=== PATIENT | male | born 1950 | race Caucasian/White ===

== ENCOUNTER 2016-03-27 14:18 | Inpatient (IN) | payer OTHER ==
[~2016-03-27] VITALS: Ht 177.8 cm; Wt 68.0 kg
[~2016-03-27 14:18] MED LIST: AMANTADINE100 M1 PO; AMPYRA10 MG PO; AZITHROMYCIN500 M1 PO; BACLOFEN10 MG PO; BENICAR HCT 201 EACH PO; CLONAZEPAM1 MG PO; COPAXONE40 MG/1 ML IJ; COPAXONE40 MG/1 ML SC; CYCLOSPORINE100 M2 PO; ERGOCALCIF50000 UNIT PO; FAMOTIDINE20 MG PO; FUROSEMIDE20 MG PO; GABAPENTIN300 MG PO; KLONOPIN1 MG PO; LIORESAL10 MG PO; LISINOPRIL10 MG PO; MAGNESIUM250 MG PO; METHOCARBAMOL500 MG PO; PRAVASTATIN SOD40 MG PO; PREDNISONE10 MG PO; TYLENOL EXTRA500 MG PO; TYLENOL REGULA325 MG PO; TYLENOL325 M1 PO; VITAMIN D35000 UNIT PO; ZANAFLEX2 M1 PO; ZANAFLEX4 M1 PO
[2016-03-27 16:09] LABS: CHLORIDE 99 mEq/L (99-109); POTASSIUM 5.3 mEq/L (3.7-5.4); SODIUM 141 mEq/L (136-147)
[2016-03-27 16:11] LABS: GLUCOSE 108 mg/dL (70-99)
[2016-03-27 16:12] LABS: ANION GAP 13 MEQ/L (2-14)
[2016-03-27 16:15] LABS: GFR ESTIMATE (CALCULATED) 14 mL/min/
[2016-03-27 16:16] LABS: UREA NITROGEN (BUN) 62 mg/dL (9-23)
[2016-03-27 16:33] LABS: MCH 30.9 PG (29.0-34.0); MCHC 33.2 G/DL (30.0-36.0); RBC DIS.WIDTH-CV 14.6 % (11.8-14.6); RBC DIS.WIDTH-SD 47.2 % (39-53); RED BLOOD COUNT 4.73 M/uL (4.00-5.50); WHITE BLOOD COUNT 13.6 K/uL (4.1-10.2)
[2016-03-27 16:56] LABS: EOSINOPHIL (%) 0.4 % (0-5); EOSINOPHIL COUNT 0.1 K/uL (0-0.3); IMMATURE GRANULOCYTE (%) 0.4 % (0.0-0.7); IMMATURE GRANULOCYTE COUNT 0.1 K/uL; LYMPHOCYTE COUNT 2.3 K/uL (1.0-2.8); MONOCYTE (%) 6.3 % (3-12); MONOCYTE COUNT 0.8 K/uL (0-0.8); NEUTROPHIL (%) 75.9 % (45-76); NEUTROPHIL COUNT 10.1 K/uL (1.8-6.4)
[2016-03-27 17:03] LABS: TOTAL BILIRUBIN 0.8 mg/dL (0.0-1.0)
[2016-03-27 17:04] LABS: ALKALINE PHOSPHATASE 171 IU/L (3-129)
[2016-03-27 17:07] LABS: DIRECT BILIRUBIN 0.4 mg/dL (0.0-0.3)
[2016-03-27 17:08] LABS: LIPASE 29 U/L (1.0-51.0)
[2016-03-27 17:14] LABS: TROP-I INTERPRETATION NEGATIVE; TROPONIN-I 0.01 ng/mL (0.0-0.30)
[2016-03-27 17:28] LABS: ABS NEUTROPHIL COUNT 10.46; ANISOCYTOSIS 1+; MEAN PLAT.VOLUME 13.2 uM^3 (9.0-12.4); PLAT.SUFFICIENCY ADEQUATE; PLATELET COUNT 241 K/uL (156-360); USER ID NPD
[2016-03-27] MEDS ORDERED: INDERAL20 MG PO (18:08)
[2016-03-27] MEDS ORDERED: OCEAN NASAL 0.645 ML BOTH NARES (18:11)
[2016-03-27] MEDS ORDERED: NEURONTIN100 MG PO ×2 (18:12)
[2016-03-27] MEDS ORDERED: ZOFRAN8 MG PO (18:13)
[2016-03-27 22:00] VITALS: BP 210/100
[2016-03-28 04:08] VITALS: BP 162/68
[2016-03-28 06:24] LABS: METH RESISTANT S AUREUS PCR NEGATIVE (NEGATIVE)
[2016-03-28 06:26] LABS: PROBE CHECK PASS; SPECIMEN PROCESSING CONTROL PASS
[2016-03-28 06:40] LABS: ANION GAP 6 MEQ/L (2-14); CHLORIDE 103 MEQ/L (99-109); GFR ESTIMATE (CALCULATED) 17 mL/min/; GLUCOSE 104 mg/dL (70-99); POTASSIUM 4.7 MEQ/L (3.7-5.4); SAMPLE HEMOLYSIS CHECK 0; SAMPLE ICTERIC CHECK 0; SAMPLE LIPEMIA CHECK 0; SODIUM 140 MEQ/L (136-147); UREA NITROGEN (BUN) 55 mg/dL (9-23)
[2016-03-28 08:22] VITALS: BP 155/78
[2016-03-28 09:40] VITALS: BP 162/76
[2016-03-28 11:14] LABS: HEMATOCRIT 37.1 % (38.0-50.0); MCH 31.7 PG (29.0-34.0); MCHC 33.2 G/DL (30.0-36.0); MCV 95.6 FL (86-99); MEAN PLAT.VOLUME 13.5 uM^3 (9.0-12.4); PLATELET COUNT 225 K/uL (156-360); RBC DIS.WIDTH-CV 14.8 % (11.8-14.6); RED BLOOD COUNT 3.88 M/uL (4.00-5.50); WHITE BLOOD COUNT 7.2 K/uL (4.1-10.2)
[2016-03-28 12:26] VITALS: BP 135/68
[2016-03-28 14:04] LABS: ADD MIUA? NO; BILIRUBIN NEGATIVE; BLOOD NEGATIVE; COLOR YELLOW ((YELLOW)); GLUCOSE (STRIP) NEGATIVE; KETONES NEGATIVE; LEUKOCYTES NEGATIVE; NITRITE NEGATIVE; PROTEIN (STRIP) NEGATIVE; SPECIFIC GRAVITY 1.012 (1.000-1.030); UROBILINOGEN 0.2 MG/DL (0.2-1.0)
[2016-03-28 14:06] LABS: UCUL ADDED? NO
[2016-03-28 16:00] VITALS: BP 203/94
[2016-03-28 21:00] VITALS: BP 152/84
[2016-03-29] VITALS (8 sets, daily range): BP systolic 120–192; BP diastolic 62–92
[2016-03-29 07:11] LABS: ANION GAP 9 MEQ/L (2-14); CHLORIDE 108 MEQ/L (99-109); GFR ESTIMATE (CALCULATED) 29 mL/min/; GLUCOSE 81 mg/dL (70-99); POTASSIUM 5.1 MEQ/L (3.7-5.4); SAMPLE HEMOLYSIS CHECK 0; SAMPLE ICTERIC CHECK 0; SAMPLE LIPEMIA CHECK 0; SODIUM 145 MEQ/L (136-147); UREA NITROGEN (BUN) 48 mg/dL (9-23)
[2016-03-29 07:23] LABS: EOSINOPHIL (%) 6.5 % (0-5); EOSINOPHIL COUNT 0.6 K/uL (0-0.3); HEMATOCRIT 35.7 % (38.0-50.0); IMMATURE GRANULOCYTE (%) 0.5 % (0.0-0.7); IMMATURE GRANULOCYTE COUNT 0.1 K/uL; LYMPHOCYTE COUNT 4.5 K/uL (1.0-2.8); MCHC 32.5 G/DL (30.0-36.0); MCV 95.5 FL (86-99); MONOCYTE (%) 13.4 % (3-12); MONOCYTE COUNT 1.3 K/uL (0-0.8); NEUTROPHIL (%) 31.1 % (45-76); NEUTROPHIL COUNT 2.9 K/uL (1.8-6.4); RBC DIS.WIDTH-CV 14.9 % (11.8-14.6); RBC DIS.WIDTH-SD 51.8 % (39-53); RED BLOOD COUNT 3.74 M/uL (4.00-5.50)
[2016-03-29 07:27] LABS: WHITE BLOOD COUNT 9.4 K/uL (4.1-10.2)
[2016-03-29 07:31] LABS: MEAN PLAT.VOLUME 13.7 uM^3 (9.0-12.4); PLAT.SUFFICIENCY ADEQUATE; PLATELET COUNT 217 K/uL (156-360); USER ID SDF
[2016-03-29 20:02] LABS: UR CREATININE CONCENTRATION 51.9 MG/DL
[2016-03-30] VITALS (8 sets, daily range): BP systolic 101–182; BP diastolic 54–90
[2016-03-30 07:01] LABS: ALKALINE PHOSPHATASE 133 IU/L (3-129); ANION GAP 10 MEQ/L (2-14); CHLORIDE 107 MEQ/L (99-109); GFR ESTIMATE (CALCULATED) 43 mL/min/; GLUCOSE 83 mg/dL (70-99); POTASSIUM 4.9 MEQ/L (3.7-5.4); SAMPLE HEMOLYSIS CHECK 0; SAMPLE ICTERIC CHECK 0; SAMPLE LIPEMIA CHECK 0; SODIUM 144 MEQ/L (136-147); TOTAL BILIRUBIN 0.4 MG/DL (0.0-1.0); UREA NITROGEN (BUN) 36 mg/dL (9-23); URIC ACID 9.4 mg/dL (3.1-9.2)
[2016-03-30 07:31] LABS: EOSINOPHIL (%) 0.6 % (0-5); EOSINOPHIL COUNT 0.1 K/uL (0-0.3); HEMATOCRIT 37.2 % (38.0-50.0); IMMATURE GRANULOCYTE (%) 0.5 % (0.0-0.7); IMMATURE GRANULOCYTE COUNT 0.1 K/uL; LYMPHOCYTE COUNT 2.5 K/uL (1.0-2.8); MCH 31.9 PG (29.0-34.0); MCHC 33.1 G/DL (30.0-36.0); MCV 96.6 FL (86-99); MONOCYTE (%) 10.3 % (3-12); MONOCYTE COUNT 1.1 K/uL (0-0.8); NEUTROPHIL (%) 64.1 % (45-76); NEUTROPHIL COUNT 6.5 K/uL (1.8-6.4); RBC DIS.WIDTH-CV 15.4 % (11.8-14.6); RBC DIS.WIDTH-SD 51.7 % (39-53); RED BLOOD COUNT 3.85 M/uL (4.00-5.50); WHITE BLOOD COUNT 10.2 K/uL (4.1-10.2)
[2016-03-30 07:32] LABS: HEMATOLOGY COMMENT 1 COLD AGGLUTININS
[2016-03-30 08:17] LABS: MEAN PLAT.VOLUME 13.8 uM^3 (9.0-12.4); PLATELET COUNT 210 K/uL (156-360)
[2016-03-31 07:00] VITALS: BP 156/70
[2016-03-31 07:21] LABS: ANION GAP 7 MEQ/L (2-14); CHLORIDE 105 MEQ/L (99-109); GFR ESTIMATE (CALCULATED) 46 mL/min/; GLUCOSE 90 mg/dL (70-99); POTASSIUM 4.5 MEQ/L (3.7-5.4); SAMPLE HEMOLYSIS CHECK 0; SAMPLE ICTERIC CHECK 0; SAMPLE LIPEMIA CHECK 0; SODIUM 140 MEQ/L (136-147); UREA NITROGEN (BUN) 36 mg/dL (9-23)
[2016-03-31 15:26] VITALS: BP 154/68
[2016-04-01] VITALS: BP 154/72
[2016-04-01 06:51] LABS: ANION GAP 6 MEQ/L (2-14); CHLORIDE 104 MEQ/L (99-109); GFR ESTIMATE (CALCULATED) 38 mL/min/; GLUCOSE 82 mg/dL (70-99); POTASSIUM 4.6 MEQ/L (3.7-5.4); SAMPLE HEMOLYSIS CHECK 0; SAMPLE ICTERIC CHECK 0; SAMPLE LIPEMIA CHECK 0; SODIUM 137 MEQ/L (136-147); UREA NITROGEN (BUN) 39 mg/dL (9-23)
[2016-04-01 07:53] LABS: EOSINOPHIL (%) 6.9 % (0-5); EOSINOPHIL COUNT 0.6 K/uL (0-0.3); HEMATOCRIT 31.7 % (38.0-50.0); IMMATURE GRANULOCYTE (%) 0.7 % (0.0-0.7); IMMATURE GRANULOCYTE COUNT 0.1 K/uL; LYMPHOCYTE COUNT 3.7 K/uL (1.0-2.8); MCHC 32.8 G/DL (30.0-36.0); MCV 94.3 FL (86-99); MONOCYTE (%) 14.3 % (3-12); MONOCYTE COUNT 1.3 K/uL (0-0.8); NEUTROPHIL (%) 37.5 % (45-76); NEUTROPHIL COUNT 3.4 K/uL (1.8-6.4); NRBC (%) 0.4 /100 WBC (0-0); RBC DIS.WIDTH-CV 15.5 % (11.8-14.6); RBC DIS.WIDTH-SD 51.2 % (39-53); RED BLOOD COUNT 3.36 M/uL (4.00-5.50); WHITE BLOOD COUNT 9.2 K/uL (4.1-10.2)
[2016-04-01 08:13] VITALS: BP 133/66
[2016-04-01 08:18] LABS: USER ID CL
[2016-04-01 08:19] LABS: MEAN PLAT.VOLUME 13.8 uM^3 (9.0-12.4); PLATELET COUNT 164 K/uL (156-360)
[2016-04-01 15:26] VITALS: BP 109/54
[2016-04-01 19:48] VITALS: BP 126/61
[2016-04-01 23:44] VITALS: BP 139/65
[2016-04-02 06:28] LABS: ANION GAP 6 MEQ/L (2-14); CHLORIDE 107 MEQ/L (99-109); GFR ESTIMATE (CALCULATED) 41 mL/min/; GLUCOSE 86 mg/dL (70-99); POTASSIUM 4.6 MEQ/L (3.7-5.4); SAMPLE HEMOLYSIS CHECK 0; SAMPLE ICTERIC CHECK 0; SAMPLE LIPEMIA CHECK 0; SODIUM 140 MEQ/L (136-147); UREA NITROGEN (BUN) 38 mg/dL (9-23)
[2016-04-02 07:43] VITALS: BP 151/70
[2016-04-02 08:04] LABS: HEMATOLOGY COMMENT 1 COLD AGGLUTININS
[2016-04-02 08:05] LABS: EOSINOPHIL (%) 9.4 % (0-5); EOSINOPHIL COUNT 0.8 K/uL (0-0.3); HEMATOCRIT 31.8 % (38.0-50.0); IMMATURE GRANULOCYTE (%) 0.4 % (0.0-0.7); LYMPHOCYTE COUNT 3.8 K/uL (1.0-2.8); MCH 31.3 PG (29.0-34.0); MCHC 33.3 G/DL (30.0-36.0); MCV 93.8 FL (86-99); MONOCYTE (%) 14.4 % (3-12); MONOCYTE COUNT 1.2 K/uL (0-0.8); NEUTROPHIL (%) 30.6 % (45-76); NEUTROPHIL COUNT 2.6 K/uL (1.8-6.4); NRBC (%) 0.7 /100 WBC (0-0); RBC DIS.WIDTH-CV 16.2 % (11.8-14.6); RBC DIS.WIDTH-SD 51.4 % (39-53); RED BLOOD COUNT 3.39 M/uL (4.00-5.50); WHITE BLOOD COUNT 8.6 K/uL (4.1-10.2)
[2016-04-02 08:26] LABS: MEAN PLAT.VOLUME 13.4 uM^3 (9.0-12.4); PLAT.SUFFICIENCY ADEQUATE; PLATELET COUNT 163 K/uL (156-360)
[2016-04-02] MEDS ORDERED: CLONIDINE HCL0.1 MG PO (08:44)
== END 2016-04-02 11:45 | disposition home health service (06) | DRG 682 ==
LOC: EME 14:18 → EDOF 20:07 → 5WEST 20:07 → EDOF 20:07 → 5WEST 21:27 → 2EAST 03-28 12:10 → 5WEST 03-28 12:10 → 2EAST 03-29 00:48
PROVIDERS: Hospitalist; Internal Medicine; Internal Medicine Gastroenterology; Internal Medicine Nephrology; Physician Assistant
DX: N17.9 Acute kidney failure, unspecified (principal); M31.1 Thrombotic microangiopathy; R11.2 Nausea with vomiting, unspecified; E86.0 Dehydration; K22.70 Barrett's esophagus without dysplasia; K44.9 Diaphragmatic hernia without obstruction or gangrene; K25.9 Gastric ulcer, unspecified as acute or chronic, without hemorrhage or perforation; D59.1 Other autoimmune hemolytic anemias; G35 Multiple sclerosis; I12.9 Hypertensive chronic kidney disease with stage 1 through stage 4 chronic kidney disease, or unspecified chronic kidney disease; N18.3 Chronic kidney disease, stage 3 (moderate); K57.30 Diverticulosis of large intestine without perforation or abscess without bleeding; K59.09 Other constipation; R29.6 Repeated falls; Z86.73 Personal history of transient ischemic attack (TIA), and cerebral infarction without residual deficits; R44.1 Visual hallucinations; R44.0 Auditory hallucinations; Z87.891 Personal history of nicotine dependence
CPT/HCPCS: 70450; 71020; 74176; 76770; 80048; 80053; 80069; 80076; 80158 90; 81003; 82570; 83690; 83935; 84100; 84300; 84484; 84550; 85007; 85025; 85027; 85060; 87641; 88305; 88342 TC; 93005; 97530 GO; 99281; 99284; B4087; C9113; G0378; G9033; J0360; J2765; J7030; J7502; J7515

== ENCOUNTER 2016-11-19 10:15 | Emergency (ER) | payer OTHER ==
[~2016-11-19] VITALS: Ht 175.3 cm; Wt 68.1 kg
[~2016-11-19 10:15] MED LIST changes: +CLONIDINE HCL0.1 MG PO; +INDERAL20 MG PO; +NEURONTIN100 MG PO; +OCEAN NASAL 0.645 ML BOTH NARES; +ZOFRAN8 MG PO
[2016-11-19 11:26] LABS: NRBC (%) 0.3 /100 WBC (0-0)
[2016-11-19 11:36] LABS: CHLORIDE 102 mEq/L (99-109); POTASSIUM 5.4 mEq/L (3.7-5.4); SODIUM 138 mEq/L (136-147)
[2016-11-19 11:39] LABS: GLUCOSE 100 mg/dL (70-99)
[2016-11-19 11:40] LABS: ANION GAP 16 MEQ/L (2-14); TOTAL BILIRUBIN 0.5 mg/dL (0.0-1.0)
[2016-11-19 11:41] LABS: SERUM ETHYL ALCOHOL < 10 mg/dL
[2016-11-19 11:42] LABS: GFR ESTIMATE (CALCULATED) 25 mL/min/
[2016-11-19 11:43] LABS: ALKALINE PHOSPHATASE 168 IU/L (3-129)
[2016-11-19 11:44] LABS: DIRECT BILIRUBIN 0.3 mg/dL (0.0-0.3); UREA NITROGEN (BUN) 74 mg/dL (9-23)
[2016-11-19 11:46] LABS: SALICYLATE < 5.0 MG/DL (15-30)
[2016-11-19 11:47] LABS: LIPASE 51 U/L (1.0-51.0)
[2016-11-19 12:02] LABS: PROTHROMBIN TIME 11.1 SEC (10.2-12.9)
[2016-11-19 12:04] LABS: PTT 37.5 SEC (25-37)
[2016-11-19 12:16] LABS: HEMATOCRIT 36.6 % (38.0-50.0); MCH 31.2 PG (29.0-34.0); MCHC 32.5 G/DL (30.0-36.0); MCV 95.8 FL (86-99); RBC DIS.WIDTH-CV 15.6 % (11.8-14.6); RBC DIS.WIDTH-SD 54.2 % (39-53); WHITE BLOOD COUNT 9.3 K/uL (4.1-10.2)
[2016-11-19 12:19] LABS: MEAN PLAT.VOLUME 13.1 uM^3 (9.0-12.4); PLATELET COUNT 170 K/uL (156-360); RED BLOOD COUNT 1.84 M/uL (4.00-5.50)
[2016-11-19 12:20] LABS: TROP-I INTERPRETATION NEGATIVE; TROPONIN-I 0.04 ng/mL (0.0-0.30)
[2016-11-19 12:22] LABS: PLATELET CLUMPS PRESENT - PLATELET COUNT APPEARS ADQ.
[2016-11-19 13:04] LABS: BILIRUBIN NEGATIVE; BLOOD NEGATIVE; COLOR YELLOW ((YELLOW)); GLUCOSE (STRIP) NEGATIVE; KETONES NEGATIVE; LEUKOCYTES NEGATIVE; NITRITE NEGATIVE; PROTEIN (STRIP) NEGATIVE; SPECIFIC GRAVITY 1.011 (1.000-1.030); UROBILINOGEN 0.2 MG/DL (0.2-1.0)
[2016-11-19 13:06] LABS: ADD MIUA? NO; UCUL ADDED? NO
[2016-11-19 16:14] VITALS: BP 170/90
== END 2016-11-19 16:15 | disposition home or self-care (01) ==
LOC: EME 10:15
PROVIDERS: Emergency Medicine
DX: G35 Multiple sclerosis (principal); R29.6 Repeated falls; R11.10 Vomiting, unspecified; I10 Essential (primary) hypertension; R56.9 Unspecified convulsions; Z86.73 Personal history of transient ischemic attack (TIA), and cerebral infarction without residual deficits; Z87.891 Personal history of nicotine dependence
CPT/HCPCS: 70450; 71020; 80048; 80076; 81003; 83605; 83690; 83880; 84484; 85027; 85610; 85730; 93005; 99281; 99284; G0480

== ENCOUNTER 2017-02-04 11:30 | Inpatient (IN) | payer OTHER ==
[~2017-02-04] VITALS: Ht 177.8 cm; Wt 67.9 kg
[2017-02-04 12:26] LABS: NRBC (%) 0.6 /100 WBC (0-0)
[2017-02-04 12:27] LABS: CHLORIDE 108 mEq/L (99-109); POTASSIUM 5.9 mEq/L (3.7-5.4); SODIUM 140 mEq/L (136-147)
[2017-02-04 12:28] LABS: EOSINOPHIL (%) 5.3 % (0-5); EOSINOPHIL COUNT 0.5 K/uL (0-0.3); IMMATURE GRANULOCYTE (%) 0.4 % (0.0-0.7); INSTRUMENT ABS NEUTROPHIL CT 5.8 K/uL; LYMPHOCYTE COUNT 1.7 K/uL (1.0-2.8); MONOCYTE (%) 6.3 % (3-12); MONOCYTE COUNT 0.5 K/uL (0-0.8); NEUTROPHIL (%) 67.6 % (45-76); NEUTROPHIL COUNT 5.8 K/uL (1.8-6.4)
[2017-02-04 12:30] LABS: GLUCOSE 177 mg/dL (70-99)
[2017-02-04 12:31] LABS: ANION GAP 11 MEQ/L (2-14)
[2017-02-04 12:32] LABS: TOTAL BILIRUBIN 0.4 mg/dL (0.0-1.0)
[2017-02-04 12:33] LABS: ALKALINE PHOSPHATASE 161 IU/L (3-129); GFR ESTIMATE (CALCULATED) 25 mL/min/
[2017-02-04 12:34] LABS: UREA NITROGEN (BUN) 69 mg/dL (9-23)
[2017-02-04] MEDS ORDERED: FLOMAX0.4 MG PO (12:40)
[2017-02-04 13:04] LABS: HEMATOCRIT 35.4 % (38.0-50.0); MCH 31.7 PG (29.0-34.0); MCHC 32.8 G/DL (30.0-36.0); MCV 96.7 FL (86-99); MEAN PLAT.VOLUME 13.3 uM^3 (9.0-12.4); PLATELET COUNT 95 K/uL (156-360); RBC DIS.WIDTH-CV 18.3 % (11.8-14.6); RBC DIS.WIDTH-SD 53.8 % (39-53); RED BLOOD COUNT 2.31 M/uL (4.00-5.50); WHITE BLOOD COUNT 8.6 K/uL (4.1-10.2)
[2017-02-04 13:29] LABS: ADD MIUA? YES; BILIRUBIN NEGATIVE; BLOOD MODERATE; COLOR YELLOW ((YELLOW)); GLUCOSE (STRIP) 50; KETONES NEGATIVE; LEUKOCYTES NEGATIVE; NITRITE NEGATIVE; PROTEIN (STRIP) 100; SPECIFIC GRAVITY 1.012 (1.000-1.030); UROBILINOGEN 0.2 MG/DL (0.2-1.0)
[2017-02-04 13:36] LABS: BACTERIA RARE /HPF; EPITHELIAL CELLS NONE SEEN /HPF; MUCUS TRACE /LPF; RED BLOOD CELLS 15-20 /HPF (0-5); UCUL ADDED? NO; WHITE BLOOD CELLS 0-5 /HPF (0-5)
[2017-02-04 14:36] LABS: EOSINOPHIL COUNT 0.4 K/uL (0-0.3); IMMATURE GRANULOCYTE (%) 0.4 % (0.0-0.7); INSTRUMENT ABS NEUTROPHIL CT 5.6 K/uL; LYMPHOCYTE COUNT 1.9 K/uL (1.0-2.8); MCH 33.2 PG (29.0-34.0); MCHC 33.6 G/DL (30.0-36.0); MCV 98.8 FL (86-99); MONOCYTE COUNT 0.5 K/uL (0-0.8); NEUTROPHIL COUNT 5.6 K/uL (1.8-6.4); NRBC (%) 0.7 /100 WBC (0-0); RBC DIS.WIDTH-CV 14.8 % (11.8-14.6); RBC DIS.WIDTH-SD 51.7 % (39-53); WHITE BLOOD COUNT 8.4 K/uL (4.1-10.2)
[2017-02-04 14:41] LABS: PLATELET COUNT 140 K/uL (156-360); RED BLOOD COUNT 3.34 M/uL (4.00-5.50)
[2017-02-04 14:44] LABS: TOTAL BILIRUBIN 0.4 mg/dL (0.0-1.0)
[2017-02-04 14:45] LABS: ALKALINE PHOSPHATASE 145 IU/L (3-129)
[2017-02-04 14:48] LABS: DIRECT BILIRUBIN 0.2 mg/dL (0.0-0.3)
[2017-02-04 14:52] LABS: TROP-I INTERPRETATION NEGATIVE; TROPONIN-I 0.01 ng/mL (0.0-0.30)
[2017-02-04 15:34] LABS: LACTATE DEHYDROGENASE 172 IU/L (20-246)
[2017-02-04 20:33] LABS: TROP-I INTERPRETATION NEGATIVE; TROPONIN-I 0.02 ng/mL (0.0-0.30)
[2017-02-04 20:45] VITALS: BP 129/67
[2017-02-04 20:50] VITALS: BP 129/67
[2017-02-04 21:30] VITALS: BP 128/62
[2017-02-04 22:00] VITALS: BP 136/67
[2017-02-04 22:10] LABS: METH RESISTANT S AUREUS PCR NEGATIVE (NEGATIVE)
[2017-02-04 22:11] LABS: PROBE CHECK PASS; SPECIMEN PROCESSING CONTROL PASS
[2017-02-04 23:00] VITALS: BP 141/68
[2017-02-05] VITALS (7 sets, daily range): BP systolic 0–186; BP diastolic 0–97
[2017-02-05 05:45] LABS: ANION GAP 6 MEQ/L (2-14); CHLORIDE 110 MEQ/L (99-109); GFR ESTIMATE (CALCULATED) 25 mL/min/; POTASSIUM 5.6 MEQ/L (3.7-5.4); SAMPLE HEMOLYSIS CHECK 0; SAMPLE ICTERIC CHECK 0; SAMPLE LIPEMIA CHECK 0; SODIUM 142 MEQ/L (136-147); UREA NITROGEN (BUN) 68 mg/dL (9-23)
[2017-02-05 05:46] LABS: GLUCOSE 98 mg/dL (70-99)
[2017-02-05 06:00] LABS: HEMATOCRIT 32.7 % (38.0-50.0); MCH 31.6 PG (29.0-34.0); MCHC 32.4 G/DL (30.0-36.0); MCV 97.6 FL (86-99); NRBC (%) 1.6 /100 WBC (0-0); PLATELET COUNT 118 K/uL (156-360); RBC DIS.WIDTH-SD 52.7 % (39-53); RED BLOOD COUNT 3.35 M/uL (4.00-5.50); WHITE BLOOD COUNT 9.8 K/uL (4.1-10.2)
[2017-02-05 22:11] LABS: DIRECT BILIRUBIN 0.1 mg/dL (0.0-0.3); TOTAL BILIRUBIN 0.3 MG/DL (0.0-1.0)
[2017-02-05 22:16] LABS: ALKALINE PHOSPHATASE 138 IU/L (3-129); LIPASE 46 U/L (1.0-51.0)
[2017-02-06] VITALS (7 sets, daily range): BP systolic 140–182; BP diastolic 68–88
[2017-02-06 07:22] LABS: ANION GAP 8 MEQ/L (2-14); CHLORIDE 113 MEQ/L (99-109); GFR ESTIMATE (CALCULATED) 36 mL/min/; GLUCOSE 89 mg/dL (70-99); POTASSIUM 5.4 MEQ/L (3.7-5.4); SAMPLE HEMOLYSIS CHECK 0; SAMPLE ICTERIC CHECK 0; SAMPLE LIPEMIA CHECK 0; SODIUM 146 MEQ/L (136-147); UREA NITROGEN (BUN) 59 mg/dL (9-23)
[2017-02-06 07:30] LABS: HEMATOCRIT 32.9 % (38.0-50.0); MCH 32.4 PG (29.0-34.0); MCHC 33.1 G/DL (30.0-36.0); MCV 97.9 FL (86-99); RBC DIS.WIDTH-CV 15.1 % (11.8-14.6); RBC DIS.WIDTH-SD 53.1 % (39-53); RED BLOOD COUNT 3.36 M/uL (4.00-5.50); WHITE BLOOD COUNT 16.6 K/uL (4.1-10.2)
[2017-02-06 07:46] LABS: EOSINOPHIL (%) 1.6 % (0-5); EOSINOPHIL COUNT 0.3 K/uL (0-0.3); HEMATOLOGY COMMENT 1 SMEAR COMPATIBLE; IMMATURE GRANULOCYTE (%) 0.6 % (0.0-0.7); IMMATURE GRANULOCYTE COUNT 0.1 K/uL; INSTRUMENT ABS NEUTROPHIL CT 13.1 K/uL; MONOCYTE (%) 6.3 % (3-12); MONOCYTE COUNT 1.1 K/uL (0-0.8); NEUTROPHIL (%) 79.2 % (45-76); NEUTROPHIL COUNT 13.1 K/uL (1.8-6.4); PLAT.SUFFICIENCY DECREASED; PLATELET COUNT 102 K/uL (156-360)
[2017-02-07 04:00] VITALS: BP 171/83
[2017-02-07 07:47] VITALS: BP 163/90
[2017-02-07 12:06] VITALS: BP 172/80
[2017-02-07 15:42] VITALS: BP 169/74
[2017-02-07] MEDS ORDERED: CYCLOSPORINE M100 MG PO (16:33)
[2017-02-07 19:16] VITALS: BP 153/71
[2017-02-07 23:11] VITALS: BP 178/86
[2017-02-08 03:32] VITALS: BP 179/79
[2017-02-08 07:34] VITALS: BP 172/81
[2017-02-08 07:41] LABS: ALKALINE PHOSPHATASE 128 IU/L (3-129); ANION GAP 7 MEQ/L (2-14); CHLORIDE 109 MEQ/L (99-109); GFR ESTIMATE (CALCULATED) 30 mL/min/; GLUCOSE 70 mg/dL (70-99); SAMPLE HEMOLYSIS CHECK 0; SAMPLE ICTERIC CHECK 0; SAMPLE LIPEMIA CHECK 0; SODIUM 140 MEQ/L (136-147); TOTAL BILIRUBIN 0.3 MG/DL (0.0-1.0); UREA NITROGEN (BUN) 62 mg/dL (9-23)
[2017-02-08 08:00] LABS: POTASSIUM 6.1 MEQ/L (3.7-5.4)
[2017-02-08 08:18] LABS: HEMATOCRIT 31.5 % (38.0-50.0); MCH 31.2 PG (29.0-34.0); MCHC 32.4 G/DL (30.0-36.0); MCV 96.3 FL (86-99); NRBC (%) 2.5 /100 WBC (0-0); PLATELET COUNT 93 K/uL (156-360); RED BLOOD COUNT 3.27 M/uL (4.00-5.50); WHITE BLOOD COUNT 12.6 K/uL (4.1-10.2)
[2017-02-08 08:20] LABS: ABS NEUTROPHIL COUNT 8.5; ANISOCYTOSIS 2+; ATYPICAL LYMPHOCYTE 7.9 %; BAND NEUTROPHILS 0.9 % (0-8.0); BASOPHILS 0.9 %; EOSINOPHIL ABS CT 0.6; EOSINOPHILS 4.4 % (0-5.0); INSTRUMENT ABS NEUTROPHIL CT 8.7 K/uL; LYMPHOCYTES 13.3 % (15.0-45.0); MACROCYTES 1+; NUCLEATED RBC'S 3.5; PLAT.SUFFICIENCY DECREASED; POIKILOCYTOSIS 1+; SEG.NEUTROPHILS 66.4 % (46.0-76.0); SMUDGE CELLS 7.1
[2017-02-08 12:11] VITALS: BP 172/79
[2017-02-08 15:07] LABS: ANION GAP 10 MEQ/L (2-14); CHLORIDE 106 MEQ/L (99-109); GFR ESTIMATE (CALCULATED) 29 mL/min/; POTASSIUM 5.1 MEQ/L (3.7-5.4); SAMPLE HEMOLYSIS CHECK 0; SAMPLE ICTERIC CHECK 0; SAMPLE LIPEMIA CHECK 0; SODIUM 138 MEQ/L (136-147); UREA NITROGEN (BUN) 64 mg/dL (9-23)
[2017-02-08 15:08] LABS: GLUCOSE 108 mg/dL (70-99)
[2017-02-08 16:07] VITALS: BP 182/86
[2017-02-08 19:23] VITALS: BP 177/88
[2017-02-08 23:49] VITALS: BP 175/79
[2017-02-09 03:32] VITALS: BP 176/83
[2017-02-09 07:47] VITALS: BP 185/84
[2017-02-09 08:10] LABS: ANION GAP 8 MEQ/L (2-14); CHLORIDE 110 MEQ/L (99-109); GFR ESTIMATE (CALCULATED) 34 mL/min/; POTASSIUM 4.7 MEQ/L (3.7-5.4); SAMPLE HEMOLYSIS CHECK 0; SAMPLE ICTERIC CHECK 0; SAMPLE LIPEMIA CHECK 0; UREA NITROGEN (BUN) 63 mg/dL (9-23)
[2017-02-09 08:12] LABS: GLUCOSE 64 mg/dL (70-99); SODIUM 146 MEQ/L (136-147)
[2017-02-09] MEDS ORDERED: AMLODIPINE BESYL5 MG PO (09:29)
[2017-02-09] MEDS ORDERED: ENDOCET 5-3251 EACH PO (09:30)
[2017-02-09] MEDS ORDERED: FAMOTIDINE20 MG PO (09:30)
[2017-02-09] MEDS ORDERED: POLYETHYLENE GL17 GM PO (09:30)
[2017-02-09] MEDS ORDERED: COLACE100 MG PO (11:22)
[2017-02-09] MEDS ORDERED: TRAMADOL HCL50 MG PO (11:25)
== END 2017-02-09 10:09 | DRG 682 ==
LOC: EME 11:30 → EDOF 13:32 → 4WEST 13:32 → ENRESERV 13:41 → CANRESERV 13:41 → ENRESERV 14:03 → 4WEST 20:34 → ENRESERV 02-05 14:43 → 3EAST 02-05 22:08
PROVIDERS: Emergency Medicine; Hospitalist; Internal Medicine
DX: N17.9 Acute kidney failure, unspecified (principal); R68.0 Hypothermia, not associated with low environmental temperature; N18.3 Chronic kidney disease, stage 3 (moderate); N32.81 Overactive bladder; M31.1 Thrombotic microangiopathy; Z86.73 Personal history of transient ischemic attack (TIA), and cerebral infarction without residual deficits; G35 Multiple sclerosis; Z87.891 Personal history of nicotine dependence; Z90.81 Acquired absence of spleen; N40.1 Benign prostatic hyperplasia with lower urinary tract symptoms; E87.5 Hyperkalemia; D64.9 Anemia, unspecified; I12.9 Hypertensive chronic kidney disease with stage 1 through stage 4 chronic kidney disease, or unspecified chronic kidney disease
CPT/HCPCS: 70551; 71010; 71250; 76705; 78582; 80048; 80048 91; 80053; 80076; 81003; 83605; 83615; 83690; 84132 91; 84443; 84484; 85025; 85025 91; 85027; 85379; 85397 90; 85730; 87040; 87502; 87641; 92526 GN; 92610 GN; 93005; 97530 GO; 97530 GP; 99281; 99285; A9540; A9567; G9033; J0360; J0610; J0696; J1644; J1940; J2270; J7030; J7050; J7502

== ENCOUNTER 2017-02-08 14:27 | Inpatient (IN) | payer OTHER ==
[~2017-02-08] VITALS: Ht 177.8 cm; Wt 71.9 kg
[~2017-02-08 14:27] MED LIST changes: +CYCLOSPORINE M100 MG PO; +FLOMAX0.4 MG PO
[2017-02-09] MEDS ORDERED: AMLODIPINE BESYL5 MG PO (09:29)
[2017-02-09] MEDS ORDERED: POLYETHYLENE GL17 GM PO (09:30)
[2017-02-09] MEDS ORDERED: ENDOCET 5-3251 EACH PO (09:30)
[2017-02-09] MEDS ORDERED: FAMOTIDINE20 MG PO (09:30)
[2017-02-09 10:25] VITALS: BP 192/98
[2017-02-09] MEDS ORDERED: COLACE100 MG PO (11:22)
[2017-02-09] MEDS ORDERED: TRAMADOL HCL50 MG PO (11:25)
[2017-02-09 14:11] VITALS: BP 152/58
[2017-02-09 15:26] VITALS: BP 140/83
[2017-02-09 19:42] LABS: POINT-OF-CARE METER ID UU13113720
[2017-02-09 19:46] LABS: ANION GAP 10 MEQ/L (2-14); CHLORIDE 106 MEQ/L (99-109); POTASSIUM 4.2 MEQ/L (3.7-5.4); SAMPLE HEMOLYSIS CHECK 0; SAMPLE ICTERIC CHECK 0; SAMPLE LIPEMIA CHECK 0; SODIUM 143 MEQ/L (136-147)
[2017-02-09 19:52] LABS: GFR ESTIMATE (CALCULATED) 36 mL/min/; UREA NITROGEN (BUN) 61 mg/dL (9-23)
[2017-02-09 19:54] LABS: GLUCOSE 136 mg/dL (70-99); TROP-I INTERPRETATION NEGATIVE; TROPONIN-I 0.03 ng/mL (0.0-0.30)
[2017-02-09 20:09] VITALS: BP 148/82
[2017-02-09 20:27] LABS: MCHC 32.6 G/DL (30.0-36.0); PLAT.SUFFICIENCY ADEQUATE; PLATELET COUNT 98 K/uL (156-360); RBC DIS.WIDTH-CV 14.9 % (11.8-14.6); RBC DIS.WIDTH-SD 51.6 % (39-53); RED BLOOD COUNT 3.58 M/uL (4.00-5.50); WHITE BLOOD COUNT 8.6 K/uL (4.1-10.2)
[2017-02-10 00:03] VITALS: BP 124/59
[2017-02-10 07:45] LABS: ALKALINE PHOSPHATASE 143 IU/L (3-129); ANION GAP 9 MEQ/L (2-14); CHLORIDE 109 MEQ/L (99-109); GFR ESTIMATE (CALCULATED) 40 mL/min/; SAMPLE HEMOLYSIS CHECK 0; SAMPLE ICTERIC CHECK 0; SAMPLE LIPEMIA CHECK 0; SODIUM 146 MEQ/L (136-147); TOTAL BILIRUBIN 0.3 MG/DL (0.0-1.0); UREA NITROGEN (BUN) 54 mg/dL (9-23)
[2017-02-10 07:46] LABS: GLUCOSE 65 mg/dL (70-99)
[2017-02-10 08:00] VITALS: BP 134/63
[2017-02-10 08:00] LABS: HEMATOCRIT 30.1 % (38.0-50.0); MCH 32.2 PG (29.0-34.0); MCHC 33.6 G/DL (30.0-36.0); MCV 95.9 FL (86-99); NRBC (%) 4.9 /100 WBC (0-0); RBC DIS.WIDTH-CV 15.2 % (11.8-14.6); RBC DIS.WIDTH-SD 52.9 % (39-53); RED BLOOD COUNT 3.14 M/uL (4.00-5.50); WHITE BLOOD COUNT 6.8 K/uL (4.1-10.2)
[2017-02-10 09:43] LABS: PLAT.SUFFICIENCY DECREASED; PLATELET COUNT 81 K/uL (156-360)
[2017-02-10 15:50] VITALS: BP 143/69
[2017-02-10 15:57] LABS: ADD MIUA? NO; BILIRUBIN NEGATIVE; BLOOD NEGATIVE; COLOR YELLOW ((YELLOW)); GLUCOSE (STRIP) NEGATIVE; KETONES NEGATIVE; LEUKOCYTES NEGATIVE; NITRITE NEGATIVE; PROTEIN (STRIP) 30; SPECIFIC GRAVITY 1.011 (1.000-1.030); UROBILINOGEN 0.2 MG/DL (0.2-1.0)
[2017-02-11 06:37] VITALS: BP 129/61
[2017-02-11 16:06] VITALS: BP 158/83
[2017-02-12 06:15] VITALS: BP 157/79
[2017-02-12 06:55] LABS: ANION GAP 10 MEQ/L (2-14); CHLORIDE 108 MEQ/L (99-109); GFR ESTIMATE (CALCULATED) 40 mL/min/; POTASSIUM 4.6 MEQ/L (3.7-5.4); SAMPLE HEMOLYSIS CHECK 0; SAMPLE ICTERIC CHECK 0; SAMPLE LIPEMIA CHECK 0; SODIUM 146 MEQ/L (136-147); UREA NITROGEN (BUN) 56 mg/dL (9-23)
[2017-02-12 06:56] LABS: ALKALINE PHOSPHATASE 190 IU/L (3-129); GLUCOSE 90 mg/dL (70-99); TOTAL BILIRUBIN 0.4 MG/DL (0.0-1.0)
[2017-02-12 06:57] LABS: HEMATOCRIT 31.6 % (38.0-50.0); MCH 31.9 PG (29.0-34.0); MCHC 33.5 G/DL (30.0-36.0); MCV 95.2 FL (86-99); NRBC (%) 4.1 /100 WBC (0-0); RBC DIS.WIDTH-CV 14.8 % (11.8-14.6); RBC DIS.WIDTH-SD 51.5 % (39-53); RED BLOOD COUNT 3.32 M/uL (4.00-5.50); WHITE BLOOD COUNT 6.8 K/uL (4.1-10.2)
[2017-02-12 07:28] LABS: MEAN PLAT.VOLUME 13.8 uM^3 (9.0-12.4); PLAT.SUFFICIENCY DECREASED; PLATELET COUNT 103 K/uL (156-360)
[2017-02-12 15:53] VITALS: BP 122/82
[2017-02-13 05:26] VITALS: BP 130/69
[2017-02-13 15:20] VITALS: BP 138/70
[2017-02-14 05:49] VITALS: BP 145/65
[2017-02-14 14:14] LABS: ANION GAP 9 MEQ/L (2-14); CHLORIDE 106 MEQ/L (99-109); GFR ESTIMATE (CALCULATED) 50 mL/min/ (58.99-99999); POTASSIUM 4.4 MEQ/L (3.7-5.4); SAMPLE HEMOLYSIS CHECK 0; SAMPLE ICTERIC CHECK 0; SAMPLE LIPEMIA CHECK 0; SODIUM 143 MEQ/L (136-147); UREA NITROGEN (BUN) 50 mg/dL (9-23)
[2017-02-14 14:16] LABS: GLUCOSE 167 mg/dL (70-99)
[2017-02-14 14:20] LABS: MCH 31.2 PG (29.0-34.0); MCHC 32.2 G/DL (30.0-36.0); RBC DIS.WIDTH-CV 14.8 % (11.8-14.6); RBC DIS.WIDTH-SD 52.8 % (39-53); WHITE BLOOD COUNT 9.5 K/uL (4.1-10.2)
[2017-02-14 15:09] LABS: PLAT.SUFFICIENCY DECREASED; PLATELET CLUMPS PRESENT - PLATELET COUNTS APPEARS DECREASED
[2017-02-14 15:11] LABS: PLATELET COUNT UNABLE TO REPORT K/uL (156-360)
[2017-02-14 16:07] VITALS: BP 143/67
[2017-02-15 04:49] VITALS: BP 124/60
[2017-02-15 15:38] VITALS: BP 148/67
[2017-02-16] VITALS (11 sets, daily range): BP systolic 95–140; BP diastolic 47–62
[2017-02-16 09:51] LABS: HEMATOCRIT 30.5 % (38.0-50.0); MCH 31.5 PG (29.0-34.0); MCHC 32.5 G/DL (30.0-36.0); MCV 97.1 FL (86-99); NRBC (%) 2.1 /100 WBC (0-0); PLATELET COUNT 88 K/uL (156-360); RBC DIS.WIDTH-CV 15.3 % (11.8-14.6); RBC DIS.WIDTH-SD 53.6 % (39-53); RED BLOOD COUNT 3.14 M/uL (4.00-5.50)
[2017-02-16 15:08] LABS: POINT-OF-CARE METER ID UU14174215
[2017-02-16 15:36] LABS: NRBC (%) 1.7 /100 WBC (0-0); PLATELET COUNT 99 K/uL (156-360)
[2017-02-16 15:50] LABS: TROP-I INTERPRETATION NEGATIVE; TROPONIN-I 0.02 ng/mL (0.0-0.30)
[2017-02-16 17:19] LABS: MCH 31.6 PG (29.0-34.0); MCHC 32.7 G/DL (30.0-36.0); MCV 96.5 FL (86-99); RBC DIS.WIDTH-CV 18.6 % (11.8-14.6); RBC DIS.WIDTH-SD 54.5 % (39-53); RED BLOOD COUNT 3.42 M/uL (4.00-5.50); WHITE BLOOD COUNT 9.1 K/uL (4.1-10.2)
[2017-02-17] VITALS: BP 113/51
[2017-02-17 01:00] VITALS: BP 82/42
[2017-02-17 02:00] VITALS: BP 82/42
[2017-02-17 03:00] VITALS: BP 95/43
[2017-02-17 04:00] VITALS: BP 92/47
[2017-02-17 05:00] VITALS: BP 100/47
[2017-02-17 08:39] LABS: ABS NEUTROPHIL COUNT 5.3; ANISOCYTOSIS 2+; EOSINOPHIL ABS CT 0.5; PLAT.SUFFICIENCY DECREASED; TARGET CELLS 1+
[2017-02-17 10:36] LABS: SCHISTOCYTES OCC
== END 2017-02-16 16:32 | DRG 945 ==
LOC: 3WEST 14:27
PROVIDERS: Hospitalist; Internal Medicine; Physical Medicine & Rehabilitation Pain Medicine
PROC: F07M7ZZ Manual Therapy Techniques Treatment of Musculoskeletal System - Whole Body (ICD-10-PCS; principal; 2017-02-09)
DX: R53.1 Weakness (principal); G35 Multiple sclerosis; J06.9 Acute upper respiratory infection, unspecified; M31.1 Thrombotic microangiopathy; N17.9 Acute kidney failure, unspecified; Z74.09 Other reduced mobility; R27.0 Ataxia, unspecified; T68.XXXA Hypothermia, initial encounter; N18.9 Chronic kidney disease, unspecified; E03.9 Hypothyroidism, unspecified; G25.0 Essential tremor; D64.9 Anemia, unspecified; N40.1 Benign prostatic hyperplasia with lower urinary tract symptoms; R32 Unspecified urinary incontinence; F29 Unspecified psychosis not due to a substance or known physiological condition; N32.81 Overactive bladder; Z79.899 Other long term (current) drug therapy; Z87.891 Personal history of nicotine dependence; Z90.81 Acquired absence of spleen; Z91.81 History of falling
CPT/HCPCS: 71010; 80048; 80048 91; 80053; 81003; 82948; 83605; 83615; 84439; 84443; 84481; 84484; 85007; 85025; 85027; 85049; 85060; 85397 90; 87040; 93005; 97110 GO; 97530 GP; G9033; J0360; J7030; J7040; J7502

== ENCOUNTER 2017-02-16 15:53 | Inpatient (IN) | payer OTHER ==
[2017-02-16] VITALS (9 sets, daily range): BP systolic 95–140; BP diastolic 47–62
[~2017-02-16] VITALS: Ht 177.8 cm; Wt 80.3 kg
[~2017-02-16 15:53] MED LIST changes: +AMLODIPINE BESYL5 MG PO; +COLACE100 MG PO; +ENDOCET 5-3251 EACH PO; +POLYETHYLENE GL17 GM PO; +TRAMADOL HCL50 MG PO
[2017-02-16 17:42] LABS: ALBUMIN 2.9 G/DL (3.2-4.8); CHLORIDE 109 MEQ/L (99-109); POTASSIUM 5.2 MEQ/L (3.7-5.4); SODIUM 141 MEQ/L (136-147); TOTAL BILIRUBIN 0.4 MG/DL (0.0-1.0)
[2017-02-16 18:16] LABS: THYROTROPIN (TSH) 2.5 MIU/L (0.4-5.5)
[2017-02-16 18:35] LABS: ALKALINE PHOSPHATASE 439 IU/L (3-129); ALT (GPT) 550 IU/L (3-49); AST (GOT) 542 IU/L (2-34); CREATININE 1.6 MG/DL (0.6-1.3); GFR ESTIMATE (CALCULATED) 46 mL/min/ (58.99-99999); GLUCOSE 89 mg/dL (70-99); TOTAL PROTEIN 6.4 G/DL (6.4-8.3); UREA NITROGEN (BUN) 60 mg/dL (9-23)
[2017-02-17] VITALS (12 sets, daily range): BP systolic 82–148; BP diastolic 42–64
[2017-02-17 06:35] LABS: INTER. NORMALIZED RATIO 1.1
[2017-02-17 06:48] LABS: ALBUMIN 2.3 G/DL (3.2-4.8); ALKALINE PHOSPHATASE 408 IU/L (3-129); ALT (GPT) 415 IU/L (3-49); AST (GOT) 339 IU/L (2-34); CHLORIDE 113 MEQ/L (99-109); CREATININE 1.7 MG/DL (0.6-1.3); GFR ESTIMATE (CALCULATED) 43 mL/min/ (58.99-99999); HEMATOCRIT 26.9 % (38.0-50.0); HEMOGLOBIN 8.9 G/DL (12.5-16.6); MCH 32.2 PG (29.0-34.0); MCHC 33.1 G/DL (30.0-36.0); MCV 97.5 FL (86-99); NRBC (%) 2.1 /100 WBC (0-0); RBC DIS.WIDTH-CV 15.5 % (11.8-14.6); RBC DIS.WIDTH-SD 54.7 % (39-53); RED BLOOD COUNT 2.76 M/uL (4.00-5.50); SODIUM 142 MEQ/L (136-147); UREA NITROGEN (BUN) 58 mg/dL (9-23)
[2017-02-17 06:59] LABS: GLUCOSE 57 mg/dL (70-99); POTASSIUM 6.2 MEQ/L (3.7-5.4); TOTAL BILIRUBIN 0.3 MG/DL (0.0-1.0); TOTAL PROTEIN 4.6 G/DL (6.4-8.3)
[2017-02-17 07:41] LABS: ABS NEUTROPHIL COUNT 6.7; ANISOCYTOSIS 1+; EOSINOPHIL ABS CT 1.1; HOWELL JOLLY BODIES 1+; PLAT.SUFFICIENCY DECREASED; PLATELET COUNT 78 K/uL (156-360); POIKILOCYTOSIS 1+
[2017-02-17 16:08] LABS: CHLORIDE 115 MEQ/L (99-109); POTASSIUM 5.1 MEQ/L (3.7-5.4); SODIUM 145 MEQ/L (136-147)
[2017-02-17 16:13] LABS: CREATININE 1.7 MG/DL (0.6-1.3); GFR ESTIMATE (CALCULATED) 43 mL/min/ (58.99-99999); UREA NITROGEN (BUN) 57 mg/dL (9-23)
[2017-02-17 16:15] LABS: GLUCOSE 105 mg/dL (70-99)
[2017-02-17 16:32] LABS: HEMATOCRIT 27.5 % (38.0-50.0); MCH 31.7 PG (29.0-34.0); MCHC 32.7 G/DL (30.0-36.0); MCV 96.8 FL (86-99); NRBC (%) 1.7 /100 WBC (0-0); PLATELET COUNT 97 K/uL (156-360); RBC DIS.WIDTH-CV 15.6 % (11.8-14.6); RBC DIS.WIDTH-SD 54.2 % (39-53); RED BLOOD COUNT 2.84 M/uL (4.00-5.50); WHITE BLOOD COUNT 16.3 K/uL (4.1-10.2)
[2017-02-18] VITALS (7 sets, daily range): BP systolic 115–181; BP diastolic 44–116
[2017-02-18 06:14] LABS: CHLORIDE 115 MEQ/L (99-109); CREATININE 1.9 MG/DL (0.6-1.3); GFR ESTIMATE (CALCULATED) 38 mL/min/ (58.99-99999); GLUCOSE 77 mg/dL (70-99); POTASSIUM 4.7 MEQ/L (3.7-5.4); SODIUM 147 MEQ/L (136-147); UREA NITROGEN (BUN) 49 mg/dL (9-23)
[2017-02-18 08:32] LABS: HEMATOCRIT 26.9 % (38.0-50.0); HEMOGLOBIN 8.7 G/DL (12.5-16.6); MCH 32.2 PG (29.0-34.0); MCHC 32.3 G/DL (30.0-36.0); MCV 99.6 FL (86-99); NRBC (%) 2.1 /100 WBC (0-0); PLATELET COUNT 98 K/uL (156-360); RBC DIS.WIDTH-CV 15.8 % (11.8-14.6); RBC DIS.WIDTH-SD 56.8 % (39-53); WHITE BLOOD COUNT 14.9 K/uL (4.1-10.2)
[2017-02-18 09:27] LABS: ABS NEUTROPHIL COUNT 10.6; ANISOCYTOSIS 2+; MACROCYTES 1+; PLAT.SUFFICIENCY DECREASED; POIKILOCYTOSIS 1+; POLYCHROMASIA 1+
[2017-02-19] VITALS (13 sets, daily range): BP systolic 131–178; BP diastolic 64–99
[2017-02-19 07:45] LABS: HEMATOCRIT 24.7 % (38.0-50.0); HEMOGLOBIN 9.2 G/DL (12.5-16.6); MCH 37.4 PG (29.0-34.0); MCHC 37.2 G/DL (30.0-36.0); MCV 100.4 FL (86-99); NRBC (%) 2.6 /100 WBC (0-0); PLATELET COUNT 97 K/uL (156-360); RBC DIS.WIDTH-CV 16.8 % (11.8-14.6); RBC DIS.WIDTH-SD 53.3 % (39-53); RED BLOOD COUNT 2.46 M/uL (4.00-5.50); WHITE BLOOD COUNT 11.2 K/uL (4.1-10.2)
[2017-02-19 08:34] LABS: CHLORIDE 115 MEQ/L (99-109); CREATININE 1.6 MG/DL (0.6-1.3); GFR ESTIMATE (CALCULATED) 46 mL/min/ (58.99-99999); POTASSIUM 4.7 MEQ/L (3.7-5.4); SODIUM 146 MEQ/L (136-147); UREA NITROGEN (BUN) 34 mg/dL (9-23)
[2017-02-19 08:39] LABS: GLUCOSE 100 mg/dL (70-99)
[2017-02-20] VITALS (9 sets, daily range): BP systolic 108–173; BP diastolic 56–92
[2017-02-20 05:29] LABS: CHLORIDE 113 mEq/L (99-109); POTASSIUM 4.1 mEq/L (3.7-5.4); SODIUM 144 mEq/L (136-147)
[2017-02-20 05:31] LABS: GLUCOSE 101 mg/dL (70-99)
[2017-02-20 05:35] LABS: CREATININE 1.7 mg/dL (0.6-1.3); GFR ESTIMATE (CALCULATED) 43 mL/min/ (58.99-99999)
[2017-02-20 05:36] LABS: UREA NITROGEN (BUN) 40 mg/dL (9-23)
[2017-02-20 05:50] LABS: HEMATOCRIT 27.4 % (38.0-50.0); HEMATOLOGY COMMENT 1 COLD AGGLUTININS; HEMOGLOBIN 9.2 G/DL (12.5-16.6); MCH 31.5 PG (29.0-34.0); MCHC 33.6 G/DL (30.0-36.0); MCV 93.8 FL (86-99); NRBC (%) 2.8 /100 WBC (0-0); PLATELET COUNT 93 K/uL (156-360); RBC DIS.WIDTH-CV 14.7 % (11.8-14.6); RBC DIS.WIDTH-SD 50.9 % (39-53); RED BLOOD COUNT 2.92 M/uL (4.00-5.50); WHITE BLOOD COUNT 13.1 K/uL (4.1-10.2)
[2017-02-20 09:16] LABS: BASE EXCESS -1.5 mEq/L (-3 to +3); BICARBONATE 22.8 mEq/L (22-26); CARBOXY HGB 1.5 % (0-5); COMMENTS - BLOOD GASES 50% V-MASK WITH; METHEMOGLOBIN 1.5 % (0-1.5); O2 FLOW 15 L/MIN; PCO2 36 mm Hg (35-45); PO2 60 mm Hg (80-100); SITE RR; pH 7.41 (7.35-7.45)
[2017-02-20 09:17] LABS: DEVICE HIGH FLOW CANNULA; TOTAL RESP RATE 17 resp/min
[2017-02-21] VITALS (9 sets, daily range): BP systolic 0–178; BP diastolic 0–84
[2017-02-21 06:34] LABS: HEMATOCRIT 30.2 % (38.0-50.0); HEMOGLOBIN 10.3 G/DL (12.5-16.6); MCH 31.9 PG (29.0-34.0); MCHC 34.1 G/DL (30.0-36.0); MCV 93.5 FL (86-99); NRBC (%) 3.8 /100 WBC (0-0); RBC DIS.WIDTH-CV 14.7 % (11.8-14.6); RBC DIS.WIDTH-SD 50.2 % (39-53); RED BLOOD COUNT 3.23 M/uL (4.00-5.50)
[2017-02-21 06:36] LABS: CHLORIDE 107 MEQ/L (99-109); CREATININE 1.9 MG/DL (0.6-1.3); GFR ESTIMATE (CALCULATED) 38 mL/min/ (58.99-99999); GLUCOSE 124 mg/dL (70-99); POTASSIUM 4.4 MEQ/L (3.7-5.4); SODIUM 144 MEQ/L (136-147); UREA NITROGEN (BUN) 43 mg/dL (9-23)
[2017-02-21 06:39] LABS: PLAT.SUFFICIENCY DECREASED; PLATELET COUNT 98 K/uL (156-360)
[2017-02-21 08:44] LABS: BASE EXCESS 0.7 mEq/L (-3 to +3); METHEMOGLOBIN 1.9 % (0-1.5); PCO2 33 mm Hg (35-45); PO2 62 mm Hg (80-100); pH 7.47 (7.35-7.45)
[2017-02-21 08:45] LABS: COMMENTS - BLOOD GASES NAC+; DEVICE HEATED HF NC; FI02 90 %; O2 FLOW 45 L/MIN; SITE LR; TOTAL RESP RATE 23 resp/min
[2017-02-22] VITALS (10 sets, daily range): BP systolic 137–178; BP diastolic 69–84
[2017-02-22 06:09] LABS: HEMATOCRIT 28.6 % (38.0-50.0); HEMOGLOBIN 9.5 G/DL (12.5-16.6); MCH 30.4 PG (29.0-34.0); MCHC 33.2 G/DL (30.0-36.0); MCV 91.7 FL (86-99); NRBC (%) 4.1 /100 WBC (0-0); PLATELET COUNT 148 K/uL (156-360); RBC DIS.WIDTH-CV 14.5 % (11.8-14.6); RED BLOOD COUNT 3.12 M/uL (4.00-5.50)
[2017-02-22 06:13] LABS: CHLORIDE 108 MEQ/L (99-109); GFR ESTIMATE (CALCULATED) 25 mL/min/ (58.99-99999); GLUCOSE 108 mg/dL (70-99); POTASSIUM 3.9 MEQ/L (3.7-5.4); SODIUM 143 MEQ/L (136-147); UREA NITROGEN (BUN) 54 mg/dL (9-23)
[2017-02-22 06:14] LABS: CREATININE 2.7 MG/DL (0.6-1.3)
[2017-02-22 08:17] LABS: BASE EXCESS -1.7 mEq/L (-3 to +3); BICARBONATE 21.6 mEq/L (22-26); CARBOXY HGB 1.5 % (0-5); METHEMOGLOBIN 1.5 % (0-1.5); PCO2 29 mm Hg (35-45); PO2 63 mm Hg (80-100); pH 7.48 (7.35-7.45)
[2017-02-22 08:18] LABS: COMMENTS - BLOOD GASES NAC+; DEVICE HHFNC; FI02 50 %; O2 FLOW 40 L/MIN; SITE LR; TOTAL RESP RATE 33 resp/min
[2017-02-23] VITALS (13 sets, daily range): BP systolic 97–173; BP diastolic 52–116
[2017-02-23 06:04] LABS: CHLORIDE 109 MEQ/L (99-109); GFR ESTIMATE (CALCULATED) 21 mL/min/ (58.99-99999); GLUCOSE 105 mg/dL (70-99); POTASSIUM 3.6 MEQ/L (3.7-5.4); SODIUM 144 MEQ/L (136-147); UREA NITROGEN (BUN) 79 mg/dL (9-23)
[2017-02-23 06:07] LABS: CREATININE 3.2 MG/DL (0.6-1.3)
[2017-02-23 07:37] LABS: HEMOGLOBIN 8.5 G/DL (12.5-16.6); MCH 30.4 PG (29.0-34.0); MCHC 32.7 G/DL (30.0-36.0); MCV 92.9 FL (86-99); NRBC (%) 5.6 /100 WBC (0-0); RBC DIS.WIDTH-CV 14.6 % (11.8-14.6); RBC DIS.WIDTH-SD 50.1 % (39-53); WHITE BLOOD COUNT 10.4 K/uL (4.1-10.2)
[2017-02-23 07:45] LABS: PLATELET COUNT 214 K/uL (156-360)
[2017-02-24] VITALS (12 sets, daily range): BP systolic 100–163; BP diastolic 44–98
[2017-02-24 06:18] LABS: HEMATOCRIT 21.5 % (38.0-50.0); HEMOGLOBIN 7.9 G/DL (12.5-16.6); MCHC 36.7 G/DL (30.0-36.0); NRBC (%) 2.9 /100 WBC (0-0); PLATELET COUNT 260 K/uL (156-360); RBC DIS.WIDTH-CV 16.1 % (11.8-14.6); RBC DIS.WIDTH-SD 52.4 % (39-53)
[2017-02-24 06:26] LABS: MCH 37.1 PG (29.0-34.0); MCV 100.9 FL (86-99); RED BLOOD COUNT 2.13 M/uL (4.00-5.50)
[2017-02-24 06:33] LABS: CHLORIDE 112 MEQ/L (99-109); CREATININE 3.2 MG/DL (0.6-1.3); GFR ESTIMATE (CALCULATED) 21 mL/min/ (58.99-99999); GLUCOSE 136 mg/dL (70-99); POTASSIUM 3.9 MEQ/L (3.7-5.4); SODIUM 145 MEQ/L (136-147); UREA NITROGEN (BUN) 94 mg/dL (9-23)
[2017-02-25] VITALS (7 sets, daily range): BP systolic 130–192; BP diastolic 65–95
[2017-02-25 05:35] LABS: BASOPHIL (%) 0 % (0-1); EOSINOPHIL (%) 0 % (0-5); HEMATOCRIT 21.9 % (38.0-50.0); HEMOGLOBIN 8.2 G/DL (12.5-16.6); IMMATURE GRANULOCYTE (%) 0.9 % (0.0-0.7); LYMPHOCYTE (%) 3.7 % (15-42); LYMPHOCYTE COUNT 0.3 K/uL (1.0-2.8); MCH 38.3 PG (29.0-34.0); MCHC 37.4 G/DL (30.0-36.0); MCV 102.3 FL (86-99); MONOCYTE (%) 12.4 % (3-12); MONOCYTE COUNT 1.1 K/uL (0-0.8); NEUTROPHIL COUNT 7.3 K/uL (1.8-6.4); NRBC (%) 1.6 /100 WBC (0-0); PLATELET COUNT 297 K/uL (156-360); RBC DIS.WIDTH-CV 16.8 % (11.8-14.6); RBC DIS.WIDTH-SD 53.7 % (39-53); RED BLOOD COUNT 2.14 M/uL (4.00-5.50); WHITE BLOOD COUNT 8.7 K/uL (4.1-10.2)
[2017-02-25 06:35] LABS: ALBUMIN 2.5 G/DL (3.2-4.8); ALKALINE PHOSPHATASE 256 IU/L (3-129); ALT (GPT) 104 IU/L (3-49); AST (GOT) 36 IU/L (2-34); CHLORIDE 111 MEQ/L (99-109); CREATININE 3.1 MG/DL (0.6-1.3); DIRECT BILIRUBIN 0.1 mg/dL (0.0-0.3); GFR ESTIMATE (CALCULATED) 22 mL/min/ (58.99-99999); GLUCOSE 131 mg/dL (70-99); MAGNESIUM 2.5 mg/dl (1.3-2.7); PHOSPHORUS 6.1 mg/dL (2.5-4.9); POTASSIUM 4.2 MEQ/L (3.7-5.4); SODIUM 144 MEQ/L (136-147); TOTAL BILIRUBIN 0.4 MG/DL (0.0-1.0); TOTAL PROTEIN 5.3 G/DL (6.4-8.3); UREA NITROGEN (BUN) 99 mg/dL (9-23)
[2017-02-26] VITALS (7 sets, daily range): BP systolic 163–178; BP diastolic 72–96
[2017-02-26 06:56] LABS: CHLORIDE 116 MEQ/L (99-109); CREATININE 2.7 MG/DL (0.6-1.3); GFR ESTIMATE (CALCULATED) 25 mL/min/ (58.99-99999); GLUCOSE 136 mg/dL (70-99); POTASSIUM 4.3 MEQ/L (3.7-5.4); SODIUM 150 MEQ/L (136-147); UREA NITROGEN (BUN) 94 mg/dL (9-23)
[2017-02-26 07:50] LABS: BASOPHIL (%) 0 % (0-1); EOSINOPHIL (%) 0 % (0-5); HEMATOCRIT 26.7 % (38.0-50.0); HEMOGLOBIN 8.9 G/DL (12.5-16.6); IMMATURE GRANULOCYTE (%) 1.2 % (0.0-0.7); LYMPHOCYTE (%) 4.3 % (15-42); LYMPHOCYTE COUNT 0.5 K/uL (1.0-2.8); MCHC 33.3 G/DL (30.0-36.0); MONOCYTE (%) 12.9 % (3-12); MONOCYTE COUNT 1.4 K/uL (0-0.8); NEUTROPHIL (%) 81.6 % (45-76); NEUTROPHIL COUNT 8.8 K/uL (1.8-6.4); NRBC (%) 0.8 /100 WBC (0-0); PLATELET COUNT 343 K/uL (156-360); RBC DIS.WIDTH-CV 15.4 % (11.8-14.6); RBC DIS.WIDTH-SD 53.1 % (39-53); RED BLOOD COUNT 2.78 M/uL (4.00-5.50); WHITE BLOOD COUNT 10.8 K/uL (4.1-10.2)
[2017-02-27 03:20] VITALS: BP 156/68
[2017-02-27 06:11] LABS: CHLORIDE 118 MEQ/L (99-109); CREATININE 2.2 MG/DL (0.6-1.3); GFR ESTIMATE (CALCULATED) 32 mL/min/ (58.99-99999); GLUCOSE 124 mg/dL (70-99); POTASSIUM 4.1 MEQ/L (3.7-5.4); SODIUM 152 MEQ/L (136-147); UREA NITROGEN (BUN) 82 mg/dL (9-23)
[2017-02-27 06:18] LABS: BASOPHIL (%) 0.2 % (0-1); EOSINOPHIL (%) 0.1 % (0-5); HEMATOCRIT 26.8 % (38.0-50.0); HEMOGLOBIN 8.6 G/DL (12.5-16.6); IMMATURE GRANULOCYTE (%) 2.3 % (0.0-0.7); LYMPHOCYTE (%) 6.2 % (15-42); LYMPHOCYTE COUNT 0.7 K/uL (1.0-2.8); MCH 30.3 PG (29.0-34.0); MCHC 32.1 G/DL (30.0-36.0); MCV 94.4 FL (86-99); MONOCYTE (%) 8.3 % (3-12); NEUTROPHIL (%) 82.9 % (45-76); NEUTROPHIL COUNT 9.7 K/uL (1.8-6.4); PLATELET COUNT 368 K/uL (156-360); RBC DIS.WIDTH-CV 15.1 % (11.8-14.6); RBC DIS.WIDTH-SD 51.3 % (39-53); RED BLOOD COUNT 2.84 M/uL (4.00-5.50); WHITE BLOOD COUNT 11.7 K/uL (4.1-10.2)
[2017-02-27 07:10] VITALS: BP 166/72
[2017-02-27 11:06] VITALS: BP 162/71
[2017-02-27 15:35] VITALS: BP 189/86
[2017-02-27 19:49] VITALS: BP 158/73
[2017-02-27 23:39] VITALS: BP 162/74
[2017-02-28 04:20] VITALS: BP 157/70
[2017-02-28 06:17] LABS: ALBUMIN 2.5 G/DL (3.2-4.8); ALKALINE PHOSPHATASE 256 IU/L (3-129); ALT (GPT) 148 IU/L (3-49); CHLORIDE 115 MEQ/L (99-109); CREATININE 1.8 MG/DL (0.6-1.3); DIRECT BILIRUBIN 0.1 mg/dL (0.0-0.3); GFR ESTIMATE (CALCULATED) 40 mL/min/ (58.99-99999); GLUCOSE 127 mg/dL (70-99); SODIUM 148 MEQ/L (136-147); TOTAL BILIRUBIN 0.4 MG/DL (0.0-1.0); UREA NITROGEN (BUN) 67 mg/dL (9-23)
[2017-02-28 06:23] LABS: AST (GOT) 72 IU/L (2-34)
[2017-02-28 07:02] VITALS: BP 172/77
[2017-02-28 08:40] LABS: BASOPHIL (%) 0.1 % (0-1); EOSINOPHIL (%) 0.1 % (0-5); HEMATOCRIT 26.7 % (38.0-50.0); HEMOGLOBIN 8.5 G/DL (12.5-16.6); IMMATURE GRANULOCYTE (%) 2.8 % (0.0-0.7); LYMPHOCYTE (%) 8.1 % (15-42); MCH 30.6 PG (29.0-34.0); MCHC 31.8 G/DL (30.0-36.0); MONOCYTE (%) 6.7 % (3-12); MONOCYTE COUNT 0.8 K/uL (0-0.8); NEUTROPHIL (%) 82.2 % (45-76); NEUTROPHIL COUNT 10.3 K/uL (1.8-6.4); NRBC (%) 0.5 /100 WBC (0-0); PLATELET COUNT 373 K/uL (156-360); RBC DIS.WIDTH-CV 15.5 % (11.8-14.6); RBC DIS.WIDTH-SD 52.5 % (39-53); RED BLOOD COUNT 2.78 M/uL (4.00-5.50); WHITE BLOOD COUNT 12.6 K/uL (4.1-10.2)
[2017-02-28 12:37] VITALS: BP 167/74
[2017-02-28 16:51] VITALS: BP 149/68
[2017-02-28 20:06] VITALS: BP 164/73
[2017-02-28 23:53] VITALS: BP 171/78
[2017-03-01] VITALS (7 sets, daily range): BP systolic 132–179; BP diastolic 58–78
[2017-03-01 10:46] LABS: CHLORIDE 114 MEQ/L (99-109); CREATININE 1.5 MG/DL (0.6-1.3); GFR ESTIMATE (CALCULATED) 50 mL/min/ (58.99-99999); GLUCOSE 133 mg/dL (70-99); SODIUM 144 MEQ/L (136-147); UREA NITROGEN (BUN) 51 mg/dL (9-23)
[2017-03-01 11:20] LABS: BASOPHIL (%) 0.1 % (0-1); EOSINOPHIL (%) 1.8 % (0-5); EOSINOPHIL COUNT 0.3 K/uL (0-0.3); HEMATOCRIT 29.3 % (38.0-50.0); IMMATURE GRANULOCYTE (%) 3.1 % (0.0-0.7); LYMPHOCYTE (%) 10.3 % (15-42); LYMPHOCYTE COUNT 1.6 K/uL (1.0-2.8); MCHC 34.1 G/DL (30.0-36.0); MCV 96.7 FL (86-99); MONOCYTE (%) 10.7 % (3-12); MONOCYTE COUNT 1.6 K/uL (0-0.8); NEUTROPHIL COUNT 11.2 K/uL (1.8-6.4); NRBC (%) 0.5 /100 WBC (0-0); RBC DIS.WIDTH-CV 15.9 % (11.8-14.6); RBC DIS.WIDTH-SD 53.2 % (39-53); RED BLOOD COUNT 3.03 M/uL (4.00-5.50); WHITE BLOOD COUNT 15.2 K/uL (4.1-10.2)
[2017-03-01 11:34] LABS: HEMATOLOGY COMMENT 1 SMEAR COMPATIBLE; PLAT.SUFFICIENCY INCREASED; PLATELET COUNT 462 K/uL (156-360)
[2017-03-02 03:54] VITALS: BP 122/58
[2017-03-02 07:42] VITALS: BP 133/63
[2017-03-02 11:31] VITALS: BP 111/56
[2017-03-02 16:39] VITALS: BP 130/61
[2017-03-02 19:15] VITALS: BP 132/60
[2017-03-02 23:35] VITALS: BP 125/58
[2017-03-03 04:38] VITALS: BP 117/56
[2017-03-03 06:07] LABS: CHLORIDE 115 MEQ/L (99-109); CREATININE 1.4 MG/DL (0.6-1.3); GFR ESTIMATE (CALCULATED) 54 mL/min/ (58.99-99999); POTASSIUM 3.4 MEQ/L (3.7-5.4); SODIUM 146 MEQ/L (136-147); UREA NITROGEN (BUN) 44 mg/dL (9-23)
[2017-03-03 06:09] LABS: GLUCOSE 86 mg/dL (70-99)
[2017-03-03 08:15] VITALS: BP 128/61
[2017-03-03 08:35] LABS: BASOPHIL (%) 0.2 % (0-1); EOSINOPHIL (%) 1.1 % (0-5); EOSINOPHIL COUNT 0.1 K/uL (0-0.3); HEMOGLOBIN 8.5 G/DL (12.5-16.6); IMMATURE GRANULOCYTE (%) 2.4 % (0.0-0.7); LYMPHOCYTE (%) 16.9 % (15-42); LYMPHOCYTE COUNT 2.1 K/uL (1.0-2.8); MONOCYTE (%) 13.7 % (3-12); MONOCYTE COUNT 1.7 K/uL (0-0.8); NEUTROPHIL (%) 65.7 % (45-76); NEUTROPHIL COUNT 8.1 K/uL (1.8-6.4); NRBC (%) 0.2 /100 WBC (0-0); PLATELET COUNT 381 K/uL (156-360); RBC DIS.WIDTH-CV 18.6 % (11.8-14.6); RBC DIS.WIDTH-SD 56.8 % (39-53); WHITE BLOOD COUNT 12.4 K/uL (4.1-10.2)
[2017-03-03 12:20] LABS: ALBUMIN 2.7 G/DL (3.2-4.8); ALKALINE PHOSPHATASE 234 IU/L (3-129); ALT (GPT) 117 IU/L (3-49); CHLORIDE 116 MEQ/L (99-109); CREATININE 1.4 MG/DL (0.6-1.3); GFR ESTIMATE (CALCULATED) 54 mL/min/ (58.99-99999); GLUCOSE 104 mg/dL (70-99); LACTATE DEHYDROGENASE 187 IU/L (20-246); SODIUM 146 MEQ/L (136-147); TOTAL PROTEIN 5.7 G/DL (6.4-8.3); UREA NITROGEN (BUN) 41 mg/dL (9-23)
[2017-03-03 12:25] LABS: AST (GOT) 36 IU/L (2-34); TOTAL BILIRUBIN 0.3 MG/DL (0.0-1.0)
[2017-03-03 12:30] VITALS: BP 122/58
[2017-03-03 12:41] LABS: BASOPHIL (%) 0.2 % (0-1); EOSINOPHIL (%) 1.8 % (0-5); EOSINOPHIL COUNT 0.2 K/uL (0-0.3); HEMATOCRIT 30.6 % (38.0-50.0); HEMOGLOBIN 9.5 G/DL (12.5-16.6); IMM.RETIC FRACTION 9.5 % (3-19); LYMPHOCYTE (%) 9.8 % (15-42); LYMPHOCYTE COUNT 1.3 K/uL (1.0-2.8); MONOCYTE (%) 8.8 % (3-12); MONOCYTE COUNT 1.1 K/uL (0-0.8); NEUTROPHIL (%) 76.4 % (45-76); NEUTROPHIL COUNT 9.8 K/uL (1.8-6.4); NRBC (%) 0.2 /100 WBC (0-0); PLATELET COUNT 349 K/uL (156-360); RBC DIS.WIDTH-CV 16.1 % (11.8-14.6); RBC DIS.WIDTH-SD 55.6 % (39-53); WHITE BLOOD COUNT 12.8 K/uL (4.1-10.2)
[2017-03-03 12:43] LABS: MCH 30.2 PG (29.0-34.0); MCV 97.1 FL (86-99); RED BLOOD COUNT 3.15 M/uL (4.00-5.50); RETICULOCYTE COUNT 2.3 % (0.5-1.8)
[2017-03-03 13:13] LABS: HEMATOCRIT 27.2 % (38.0-50.0); MCV 99.3 FL (86-99); RED BLOOD COUNT 2.74 M/uL (4.00-5.50)
[2017-03-03 13:14] LABS: MCH 31.4 PG (29.0-34.0); MCHC 31.6 G/DL (30.0-36.0)
[2017-03-03 15:57] VITALS: BP 119/56
[2017-03-03 20:03] VITALS: BP 120/59
[2017-03-04] VITALS (7 sets, daily range): BP systolic 112–140; BP diastolic 53–65
[2017-03-04 06:45] LABS: BASOPHIL (%) 0.1 % (0-1); EOSINOPHIL (%) 0.7 % (0-5); EOSINOPHIL COUNT 0.1 K/uL (0-0.3); HEMATOCRIT 23.8 % (38.0-50.0); HEMOGLOBIN 8.7 G/DL (12.5-16.6); IMMATURE GRANULOCYTE (%) 3.4 % (0.0-0.7); LYMPHOCYTE (%) 16.9 % (15-42); LYMPHOCYTE COUNT 2.3 K/uL (1.0-2.8); MCHC 36.6 G/DL (30.0-36.0); MONOCYTE (%) 13.3 % (3-12); MONOCYTE COUNT 1.8 K/uL (0-0.8); NEUTROPHIL (%) 65.6 % (45-76); NRBC (%) 0.2 /100 WBC (0-0); PLATELET COUNT 403 K/uL (156-360); RBC DIS.WIDTH-CV 18.3 % (11.8-14.6); RBC DIS.WIDTH-SD 55.9 % (39-53); WHITE BLOOD COUNT 13.7 K/uL (4.1-10.2)
[2017-03-04 07:08] LABS: MCH 37.3 PG (29.0-34.0); MCV 102.1 FL (86-99); RED BLOOD COUNT 2.33 M/uL (4.00-5.50)
[2017-03-04 07:11] LABS: CHLORIDE 115 MEQ/L (99-109); CREATININE 1.5 MG/DL (0.6-1.3); GFR ESTIMATE (CALCULATED) 50 mL/min/ (58.99-99999); GLUCOSE 93 mg/dL (70-99); POTASSIUM 4.3 MEQ/L (3.7-5.4); SODIUM 145 MEQ/L (136-147); UREA NITROGEN (BUN) 44 mg/dL (9-23)
[2017-03-05 04:23] VITALS: BP 126/59
[2017-03-05 07:10] VITALS: BP 129/59
[2017-03-05 12:00] VITALS: BP 128/61
[2017-03-05] MEDS ORDERED: APRESOLINE50 MG PO (14:21)
[2017-03-05] MEDS ORDERED: DUONEB 2.5-0.5 M3 ML AEROSOL (14:21)
[2017-03-05] MEDS ORDERED: INDERAL20 MG PO (14:22)
[2017-03-05] MEDS ORDERED: CLONAZEPAM0.5 MG PO (14:22)
[2017-03-05] MEDS ORDERED: GABAPENTIN100 MG PO (14:23)
[2017-03-05] MEDS ORDERED: QUETIAPINE FUMA50 MG PO (14:23)
== END 2017-03-05 15:45 | DRG 871 ==
LOC: 4EAST 15:53 → ENRESERV 15:54 → 4EAST 16:49 → 4WEST 16:49 → ENRESERV 02-24 09:38 → 4EAST 02-24 12:18 → ENRESERV 03-01 11:46 → 5EAST 03-03 15:10
PROVIDERS: Hospitalist; Internal Medicine; Internal Medicine Nephrology
DX: A41.9 Sepsis, unspecified organism (principal); J69.0 Pneumonitis due to inhalation of food and vomit; G93.40 Encephalopathy, unspecified; J96.01 Acute respiratory failure with hypoxia; D69.3 Immune thrombocytopenic purpura; R65.20 Severe sepsis without septic shock; G35 Multiple sclerosis; N17.9 Acute kidney failure, unspecified; J90 Pleural effusion, not elsewhere classified; E46 Unspecified protein-calorie malnutrition; I12.9 Hypertensive chronic kidney disease with stage 1 through stage 4 chronic kidney disease, or unspecified chronic kidney disease; E03.9 Hypothyroidism, unspecified; D64.9 Anemia, unspecified; G47.33 Obstructive sleep apnea (adult) (pediatric); R00.1 Bradycardia, unspecified; N18.3 Chronic kidney disease, stage 3 (moderate); I25.10 Atherosclerotic heart disease of native coronary artery without angina pectoris; E87.0 Hyperosmolality and hypernatremia; E87.6 Hypokalemia; D69.59 Other secondary thrombocytopenia; I27.20 Pulmonary hypertension, unspecified; I08.1 Rheumatic disorders of both mitral and tricuspid valves; R13.10 Dysphagia, unspecified; T38.0X5A Adverse effect of glucocorticoids and synthetic analogues, initial encounter; E16.2 Hypoglycemia, unspecified; Y95 Nosocomial condition; R74.0 Nonspecific elevation of levels of transaminase and lactic acid dehydrogenase [LDH]; I45.10 Unspecified right bundle-branch block; N40.0 Benign prostatic hyperplasia without lower urinary tract symptoms; E86.0 Dehydration; Z90.81 Acquired absence of spleen; Z79.899 Other long term (current) drug therapy; Z88.0 Allergy status to penicillin
CPT/HCPCS: 31720; 36600; 70450; 70553; 71010; 71250; 78580; 80048; 80048 91; 80053; 80076; 81003; 82140; 82272; 82550 91; 82803; 82948; 83010 90; 83605; 83615; 83735; 84100; 84439; 84443; 84481; 85025; 85025 91; 85027; 85379; 85610; 85651; 87040; 87070; 87086; 87205; 87641; 92526 GN; 92610 GN; 93306; 94640; 94640 76; 94760; 94799; 95819; 97530 GO; 97530 GP; 99202; A6214; A9540; C1753; G9033; J0456; J0692; J1630; J1940; J2060; J2920; J3370; J7030; J7070; J7502; J7512; S0028

== ENCOUNTER → 2017-04-18 | Outpatient (CLI) | payer OTHER ==
[~2017-04-18] MED LIST changes: +ADVIL LIQUI-GE200 MG PO; +APRESOLINE50 MG PO; +CLONAZEPAM0.5 MG PO; +DUONEB 2.5-0.5 M3 ML AEROSOL; +FEOSOL325 MG PO; +GABAPENTIN100 MG PO; +LIDOCARE1 EACH TP; +QUETIAPINE FUMA50 MG PO
== END ==
LOC: RAD 09:39
DX: R13.13 Dysphagia, pharyngeal phase (principal); Z86.73 Personal history of transient ischemic attack (TIA), and cerebral infarction without residual deficits; Z87.01 Personal history of pneumonia (recurrent)
CPT/HCPCS: 74230; 92611 GN; G8996 GN CJ; G8997 GN CJ; G8998 GN CJ